=== PATIENT | male | born 1960 | race Hispanic/Latino ===

== ENCOUNTER 2018-01-19 11:28 | Emergency (ER) | payer MEDICARE ==
[2018-01-19 11:28] VITALS: BMI 33.2
[2018-01-19 11:41] VITALS: TEMP 97.8
[2018-01-19] MEDS ORDERED: Sodium Chloride 0.9% 500 ML IV STA (12:13)
[2018-01-19] MEDS ORDERED: Morphine 4 mg/ml ISec IVP STA (12:13)
[2018-01-19 12:16] VITALS: RESP 18; O2SAT 98
[2018-01-19] MEDS ORDERED: Iohexol 240 (50 ml) ONE (12:20)
[2018-01-19 12:52] LABS: BASO # 0.04 K/mm3 (0.0-2.0); BASO % 0.3 % (0.0-3.0); EOS # 0.5 (0.0-0.7); EOS % 4.1 % (1.5-5.0); GRAN # 5.2 (1.4-6.5); GRAN % 43.8 % (50.0-68.0); LYMPH # 5.2 (1.2-3.4); LYMPH % 43.7 % (22.0-35.0); MEAN CELL VOLUME 93.1 fl (80.0-105.0); MEAN CORPUSCULAR HEMOGLOBIN 31.3 pg (25.0-35.0); MEAN CORPUSCULAR HGB CONC 33.6 g/dl (31.0-37.0); MONO % 8.1 % (1.0-6.0); RBC 4.8 10^6/uL (3.5-6.1); RED CELL DISTRIBUTION WIDTH 14.3 % (11.5-14.5); WHITE BLOOD COUNT 11.9 10^3/ul (4.5-11.0)
[2018-01-19 13:03] LABS: ALB/GLOB RATIO 1.1 (1.1-1.8); ALBUMIN 4.7 g/dL (3.0-4.8); ALT/SGPT 47 U/L (7-56); AMYLASE 65 U/L (35-125); AST/SGOT 42 U/L (17-59); BLOOD UREA NITROGEN 14 mg/dL (7-21); CALCIUM 10.2 mg/dL (8.4-10.5); GFR AFRICAN-AMERICAN > 60; GFR NON-AFRICAN AMERICAN > 60; LIPASE 107 U/L (23-300)
--- NOTE | 2018-01-19 13:03 | ED PDOC ---
Arrival/HPI - General Chief Complaint: Abdominal Pain Time Seen by Provider: 01/19/18 11:50 Historian: Patient - History of Present Illness Narrative History of Present Illness (Text): 01/19/18 12:09 A 57 year old male, whose past medical history includes COPD (heavy smoker), hypertension, NIDDM, presents to the emergency department complaining of progressive severe RUQ abdominal pain for 2-3 weeks. Patient reports pain is recurrent, with severity of 10/10. Patient denies any nausea, vomiting, urinary symptoms, or any other complaints at this time. PMD: Dr. Jcarlos Izaguirre Time/Duration: Other (2-3 weeks) Symptom Onset: Sudden Symptom Course: Unchanged, Worsening Quality: Aching, Pressure Severity Level: Moderate Activities at Onset: Rest Context: Home Past Medical History - Provider Review Nursing Documentation Reviewed: Yes - Travel History Have you recently traveled outside [place] w/in the past 3 mons?: No - Cardiac Hx Cardiac Disorders: Yes Hx Hypertension: Yes - Pulmonary Hx Respiratory Disorders: Yes Hx Chronic Obstructive Pulmonary Disease (COPD): Yes Other/Comment: SMOKER - Neurological Hx Neurological Disorder: No - HEENT Hx HEENT Disorder: Yes Hx Macular Degeneration: Yes Other/Comment: WEARS GLASSES - Renal Hx Renal Disorder: No - Endocrine/Metabolic Hx Endocrine Disorders: Yes Hx Diabetes Mellitus Type 2: Yes - Hematological/Oncological Hx Blood Disorders: No - Integumentary Hx Dermatological Disorder: Yes Hx Cellulitis: Yes - Musculoskeletal/Rheumatological Hx Musculoskeletal Disorders: No Hx Falls: No - Gastrointestinal Hx Gastrointestinal Disorders: No - Genitourinary/Gynecological Hx Genitourinary Disorders: No - Psychiatric Hx Psychophysiologic Disorder: Yes Hx Anxiety: Yes Hx Depression: Yes Hx Substance Use: No - Surgical History Other/Comment: DEBRIDEMENT OF BACK WOUND - Anesthesia Hx Anesthesia: Yes Hx Anesthesia Reactions: No Hx Malignant Hyperthermia: No - Suicidal Assessment Feels Threatened In Home Enviroment: No Family/Social History - Physician Review Nursing Documentation Reviewed: Yes Family/Social History: No Known Family HX Smoking Status: Heavy Smoker > 10 Cigarettes Daily Hx Alcohol Use: No Hx Substance Use: No Allergies/Home Meds Allergies/Adverse Reactions: Allergies No Known Allergies Allergy (Verified 01/19/18 11:35) Home Medications: Home Meds Medication Instructions Recorded Confirmed GlipiZIDE [Glucotrol] 10 mg PO BID 05/22/15 01/19/18 Olmesartan/Hydrochlorothiazide 1 tab PO DAILY 05/29/15 01/19/18 [Benicar Hct 12.5 mg-40 mg] metFORMIN [glucOPHAGE] 500 mg PO BID 08/06/16 01/19/18 Review of Systems - Physician Review All systems were reviewed & negative as marked: Yes - Review of Systems Constitutional: Normal Eyes: Normal ENT: Normal Respiratory: Normal Cardiovascular: Normal Gastrointestinal: Abdominal Pain (RUQ). absent: Nausea, Vomiting Genitourinary Male: absent: Dysuria, Frequency, Hematuria, Urinary Output Changes Musculoskeletal: Back Pain Skin: Normal Neurological: Normal Endocrine: Normal Hemo/Lymphatic: Normal Psychiatric: Normal Physical Exam Vital Signs Reviewed: Yes Vital Signs Temp Pulse Resp BP Pulse Ox 01/19/18 15:15 74 18 112/69 98 01/19/18 13:48 79 18 115/75 98 01/19/18 12:15 86 18 113/71 98 01/19/18 11:37 97.8 F 94 H 17 111/73 96 Temperature: Afebrile Blood Pressure: Normal Pulse: Regular Respiratory Rate: Normal Appearance: Positive for: Well-Appearing Pain Distress: Severe Mental Status: Positive for: Alert and Oriented X 3 - Systems Exam Head: Present: Atraumatic, Normocephalic Pupils: Present: PERRL Extroacular Muscles: Present: EOMI Conjunctiva: Present: Normal Mouth: Present: Moist Mucous Membranes Neck: Present: Normal Range of Motion Respiratory/Chest: Present: Clear to Auscultation, Good Air Exchange. No: Respiratory Distress, Accessory Muscle Use Cardiovascular: Present: Regular Rate and Rhythm, Normal S1, S2. No: Murmurs Abdomen: Present: Tenderness, Distention, Normal Bowel Sounds, Other (positive Mcleod's). No: Rebound, Guarding, McBurney's Point Tender, Rovsing's Sign Present, Hernias, Feeding Tubes, Ostomy Tubes, Mass/Organomegaly Back: Present: Other (right lower back pain that refers to right side groin) Upper Extremity: Present: Normal Inspection. No: Cyanosis, Edema Lower Extremity: Present: Normal Inspection. No: Edema Neurological: Present: GCS=15, CN II-XII Intact, Speech Normal Skin: Present: Warm, Dry, Normal Color. No: Rashes Psychiatric: Present: Alert, Oriented x 3, Normal Insight, Normal Concentration Medical Decision Making ED Course and Treatment: 01/19/18 12:13 Impression: 57 year old male with progressive severe RUQ abdominal pain. Physical exam shows positive Mcle[facility]'s of abdomen; right lower back pain refers to right side groin; rest of examination is benign. Differential Diagnosis included but are not limited to: Cholelithiasis vs. Renal Stones. Plan: -- Abd/Pelvis CT -- Abdominal Ultrasound -- Chest X-ray -- Labs -- Urinalysis -- Pepcid -- Morphine -- Zofran -- IV Fluids -- Reassess and disposition Progress Notes: CT unremarkable labs WNL; no indication of renal stone of cholelithiasis; 01/19/18 15:49 Abdominal Complete US revealed bilateral renal cysts only and was corroborated with the CT Discussed with patient and family who interprets ([place]ic); advised to f/u with PMD; advised to see Dr. El for pain management VSS stable on dc and ambulated well out of the ED - Lab Interpretations Lab Results: 01/19/18 12:30 01/19/18 12:30 Lab Results 01/19/18 14:10: Urine Color Yellow, Urine Appearance Clear, Urine pH 6.0, Ur Specific [place] 1.025, Urine Protein Negative, Urine Glucose (UA) Negative, Urine Ketones Negative, Urine Blood Negative, Urine Nitrate Negative, Urine Bilirubin Negative, Urine Urobilinogen 0.2, Ur Leukocyte Esterase Negative 01/19/18 12:30: Sodium 144, Potassium 3.5 L, Chloride 102, Carbon Dioxide 27, Anion Gap 18, BUN 14, Creatinine 0.8, Est GFR ( Amer) > 60, Est GFR (Non- Af Amer) > 60, Random Glucose 94, Calcium 10.2, Total Bilirubin 0.5, AST 42, ALT 47, Alkaline Phosphatase 87, Total Protein 9.1 H, Albumin 4.7, Globulin 4.4 , Albumin/Globulin Ratio 1.1, Amylase 65, Lipase 107 01/19/18 12:30: PT 12.2, INR 1.06, APTT 29.8 01/19/18 12:30: WBC 11.9 H, RBC 4.80, Hgb 15.0, Hct 44.7, MCV 93.1, MCH 31.3, MCHC 33.6, RDW 14.3, Plt Count 243, MPV 11.0, Gran % 43.8 L, Lymph % (Auto) 43.7 H, Mckean % (Auto) 8.1 H, Eos % (Auto) 4.1, Baso % (Auto) 0.3, Gran # 5.20, Lymph # (Auto) 5.2 H, Mckean # (Auto) 1.0 H, Eos # (Auto) 0.5, Baso # (Auto) 0.04 I have reviewed the lab results: Yes - RAD Interpretation Narrative RAD Interpretations (Text): 01/19/18 15:45 PROCEDURE: CT Abdomen and Pelvis with contrast HISTORY: RUQ pain COMPARISON: 08/16/2014 TECHNIQUE: Contrast dose: 150 cc of Omni 350 Radiation dose: Total exam DLP = 1323 mGy-cm. This CT exam was performed using one or more of the following dose reduction techniques: Automated exposure control, adjustment of the mA and/or kV according to patient size, and/or use of iterative reconstruction technique. FINDINGS: LOWER THORAX: Unremarkable. LIVER: Unremarkable. No gross lesion or ductal dilatation. There is fatty infiltration of the liver GALLBLADDER AND BILE DUCTS: Unremarkable. PANCREAS: Unremarkable. No gross lesion or ductal dilatation. SPLEEN: Unremarkable. ADRENALS: Unremarkable. No mass. KIDNEYS AND URETERS: Unremarkable. No hydronephrosis. No solid mass. VASCULATURE: Unremarkable. No aortic aneurysm. BOWEL: Unremarkable. No obstruction. No gross mural thickening. APPENDIX: Normal appendix. PERITONEUM: Unremarkable. No free fluid. No free air. LYMPH NODES: Unremarkable. No enlarged lymph nodes. BLADDER: Unremarkable. REPRODUCTIVE: Unremarkable. BONES: No acute fracture. OTHER FINDINGS: None. IMPRESSION: No acute intra-abdominal findings. 01/19/18 15:59 CXR: CARDIOVASCULAR: Mild cardiomegaly 01/19/18 16:26 Abd US HISTORY: RUQ pain COMPARISON: None. TECHNIQUE: Sonographic evaluation of the abdomen. FINDINGS: LIVER: Measures 24 cm enlarged. Diffuse increased echogenicity compatible with fatty infiltration. Apparent fatty sparing adjacent to the gallbladder. No intrahepatic bile duct dilatation. GALLBLADDER: Unremarkable. No gallstones. COMMON BILE DUCT: Measures 5.3 mm. No dilated ducts. PANCREAS: Unremarkable as visualized. No mass. No ductal dilatation. RIGHT KIDNEY: Measures 12.5 x 5.2 x 5.8cm. In the midpole of the right kidney there is intermediate area of echotexture masslike measuring 3.6 x 2.8 x 3.6 cm. This mass like echotexture extends into the right renal central echogenic fat. A unusually masslike prominent column of Fletcher -a developmental variant is 1 consideration. However the diagnosis of exclusion is a nearly isoechoic right renal mass here. . If CT is unrevealing, then MR of the kidneys is recommended without with contrast enhancement. Triple phase CT imaging is another consideration. No calculus, or hydronephrosis. LEFT KIDNEY: Measures 11.6 x 5.6 x 5.4 cmcm. No calculus,or hydronephrosis. A similar intermediate area of fat echotexture masslike measuring 4.5 x 3.9 x 4.8 cm extending into the midpole of the left renal sinus echogenic fat is noted. An unusually masslike prominent hilum of burden-a developmental variant is also in this left kidney a consideration. -but as mentioned in the right kidney findings the diagnosis of exclusion is a nearly isoechoic left renal mass here. If CT is unrevealing, then MR of the kidneys is recommended without with contrast enhancement. Triple phase CT imaging is another consideration. An incidental left upper renal pole intra cortical cyst ox megaly 2 cm in size is also noted. SPLEEN: Normal in size and contour. No mass. AORTA: No aneurysmal dilatation. IVC: Unremarkable. OTHER FINDINGS: None. IMPRESSION: Hepatomegaly. Hepatic steatosis. No gallbladder or pancreatic pathology noted Left upper renal pole cortical cyst -2 cm In each renal mid pole the masslike echotexture here is indeterminate in its clinical significance. Prominent developmental variants are 1 consideration. As mentioned above diagnosis of exclusion is solid renal masses. Please note the above recommendations regarding additional CT and beyond that already performed versus additional MRI imaging Radiology Orders: 01/19/18 12:13 ABD PELVIS PO & IV CONTRAST [CT] Stat CHEST PORTABLE [RAD] Stat ABDOMEN COMPLETE [US] Stat - Medication Orders Current Medication Orders: Discontinued Medications Famotidine (Pepcid) 20 mg IVP STAT STA Stop: 01/19/18 12:14 Last Admin: 01/19/18 13:13 Dose: 20 mg IVP Administration Document 01/19/18 13:13 GMD (Rec: 01/19/18 13:13 GMD [id number]) Charges for Administration # of IVP Administrations 1 Sodium Chloride (Sodium Chloride 0.9%) 500 mls @ 1,000 mls/hr IV .Q30M STA Stop: 01/19/18 12:42 Last Admin: 01/19/18 13:13 Dose: 1,000 mls/hr eMAR Start Stop Document 01/19/18 13:13 GM (Rec: 01/19/18 13:13 [place] [id number]) Intravenous Solution Start Date 01/19/18 Start Time 13:13 End Date 01/19/18 End time 13:43 Total Infusion Time 30 Morphine Sulfate (Morphine) 4 mg IVP STAT STA Stop: 01/19/18 12:14 Last Admin: 01/19/18 13:13 Dose: 4 mg MAR Pain Assessment Document 01/19/18 13:13 [facility] (Rec: 01/19/18 13:13 [facility] [id number]) Pain Reassessment Is this a pain reassessment? No Presence of Pain Presence of Pain Yes IVP Administration Document 01/19/18 13:13 GMD (Rec: 01/19/18 13:13 [facility] [id number]) Charges for Administration # of IVP Administrations 1 Ondansetron HCl (Zofran Inj) 4 mg IVP STAT STA Stop: 01/19/18 12:14 Last Admin: 01/19/18 13:13 Dose: 4 mg IVP Administration Document 01/19/18 13:13 [facility] (Rec: 01/19/18 13:13 [place] [id number]) Charges for Administration # of IVP Administrations 1 Potassium Chloride (K-Dur 20 Meq Er Tab) 40 meq PO STAT STA Stop: 01/19/18 13:33 - Scribe Statement The provider has reviewed the documentation as recorded by the Ale Contreras Provider Scribe Attestation: All medical record entries made by the Scribe were at my direction and personally dictated by me. I have reviewed the chart and agree that the record accurately reflects my personal performance of the history, physical exam, medical decision making, and the department course for this patient. I have also personally directed, reviewed, and agree with the discharge instructions and disposition. Disposition/Present on Arrival - Present on Arrival Any Indicators Present on Arrival: Yes History of DVT/PE: No History of Uncontrolled Diabetes: Yes Urinary Catheter: No History of Decub. Ulcer: No History Surgical Site Infection Following: None - Disposition Have Diagnosis and Disposition been Completed?: Yes Diagnosis: Low back pain at multiple sites, Chronic pain Disposition: HOME/ ROUTINE Disposition Time: 16:46 Patient Plan: Discharge Condition: STABLE Discharge Instructions (ExitCare): Low Back Pain (DC) Additional Instructions: Dear Wilman, Please follow up with your Primary Medical Doctor in the next few days to discuss today's visit. If you have a sudden change in your pain along with other alarming symptoms, return to the ER for evaluation. 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 Take care and Be Well, RONI Matt Prescriptions: traMADol [Ultram] 50 mg PO TID #15 tab Referrals: Jcarlos Izaguirre MD, PhD [Primary Care Provider] - Follow up with primary Forms: [employer] ([place])
[2018-01-19 13:07] LABS: INR 1.06 (0.93-1.08); PROTHROMBIN TIME 12.2 SECONDS (9.4-12.5)
[2018-01-19 13:08] LABS: PARTIAL THROMBOPLASTIN TIME 29.8 Seconds (25.1-36.5)
[2018-01-19] MEDS ORDERED: Potassium Chloride 20 mEq ER Tab PO STA (13:32)
[2018-01-19 14:15] LABS: URINE BILIRUBIN NEGATIVE (NEGATIVE); URINE BLOOD NEGATIVE (NEGATIVE); URINE GLUCOSE (UA) NEGATIVE (NEGATIVE); URINE LEUKOCYTE ESTERASE NEGATIVE Leu/uL (NEGATIVE); URINE PROTEIN NEGATIVE mg/dL (<30 mg/dL); URINE UROBILINOGEN 0.2 E.U./dL (<1 E.U./dL)
[2018-01-19 14:17] LABS: URINE APPEARANCE CLEAR (CLEAR); URINE COLOR YELLOW (YELLOW)
[2018-01-19 15:16] VITALS: BP 112/69; PULSE 74
--- NOTE | 2018-01-19 15:43 | CT ---
PROCEDURE: CT Abdomen and Pelvis with contrast HISTORY: RUQ pain COMPARISON: 08/16/2014 TECHNIQUE: Contrast dose: 150 cc of Omni 350 Radiation dose: Total exam DLP = 1323 mGy-cm. This CT exam was performed using one or more of the following dose reduction techniques: Automated exposure control, adjustment of the mA and/or kV according to patient size, and/or use of iterative reconstruction technique. FINDINGS: LOWER THORAX: Unremarkable. LIVER: Unremarkable. No gross lesion or ductal dilatation. There is fatty infiltration of the liver GALLBLADDER AND BILE DUCTS: Unremarkable. PANCREAS: Unremarkable. No gross lesion or ductal dilatation. SPLEEN: Unremarkable. ADRENALS: Unremarkable. No mass. KIDNEYS AND URETERS: Unremarkable. No hydronephrosis. No solid mass. VASCULATURE: Unremarkable. No aortic aneurysm. BOWEL: Unremarkable. No obstruction. No gross mural thickening. APPENDIX: Normal appendix. PERITONEUM: Unremarkable. No free fluid. No free air. LYMPH NODES: Unremarkable. No enlarged lymph nodes. BLADDER: Unremarkable. REPRODUCTIVE: Unremarkable. BONES: No acute fracture. OTHER FINDINGS: None. IMPRESSION: No acute intra-abdominal findings.
--- NOTE | 2018-01-19 15:54 | RAD ---
HISTORY: RUQ pain COMPARISON: 08/16/2014 FINDINGS: LUNGS: No active pulmonary disease. PLEURA: No significant pleural effusion identified, no pneumothorax apparent. CARDIOVASCULAR: Mild cardiomegaly OSSEOUS STRUCTURES: No significant abnormalities. VISUALIZED UPPER ABDOMEN: Normal. OTHER FINDINGS: None. IMPRESSION: No active disease.
--- NOTE | 2018-01-19 16:25 | US ---
HISTORY: RUQ pain COMPARISON: None. TECHNIQUE: Sonographic evaluation of the abdomen. FINDINGS: LIVER: Measures 24 cm enlarged. Diffuse increased echogenicity compatible with fatty infiltration. Apparent fatty sparing adjacent to the gallbladder. No intrahepatic bile duct dilatation. GALLBLADDER: Unremarkable. No gallstones. COMMON BILE DUCT: Measures 5.3 mm. No dilated ducts. PANCREAS: Unremarkable as visualized. No mass. No ductal dilatation. RIGHT KIDNEY: Measures 12.5 x 5.2 x 5.8cm. In the midpole of the right kidney there is intermediate area of echotexture masslike measuring 3.6 x 2.8 x 3.6 cm. This mass like echotexture extends into the right renal central echogenic fat. A unusually masslike prominent column of Fletcher -a developmental variant is 1 consideration. However the diagnosis of exclusion is a nearly isoechoic right renal mass here. . If CT is unrevealing, then MR of the kidneys is recommended without with contrast enhancement. Triple phase CT imaging is another consideration. No calculus, or hydronephrosis. LEFT KIDNEY: Measures 11.6 x 5.6 x 5.4 cmcm. No calculus,or hydronephrosis. A similar intermediate area of fat echotexture masslike measuring 4.5 x 3.9 x 4.8 cm extending into the midpole of the left renal sinus echogenic fat is noted. An unusually masslike prominent hilum of burden-a developmental variant is also in this left kidney a consideration. -but as mentioned in the right kidney findings the diagnosis of exclusion is a nearly isoechoic left renal mass here. If CT is unrevealing, then MR of the kidneys is recommended without with contrast enhancement. Triple phase CT imaging is another consideration. An incidental left upper renal pole intra cortical cyst ox megaly 2 cm in size is also noted. SPLEEN: Normal in size and contour. No mass. AORTA: No aneurysmal dilatation. IVC: Unremarkable. OTHER FINDINGS: None. IMPRESSION: Hepatomegaly. Hepatic steatosis. No gallbladder or pancreatic pathology noted Left upper renal pole cortical cyst -2 cm In each renal mid pole the masslike echotexture here is indeterminate in its clinical significance. Prominent developmental variants are 1 consideration. As mentioned above diagnosis of exclusion is solid renal masses. Please note the above recommendations regarding additional CT and beyond that already performed versus additional MRI imaging
== END 2018-01-19 17:18 | disposition home or self-care (01) ==
LOC: ED 11:28
DX: M54.5 Low back pain (principal); G89.29 Other chronic pain; I10 Essential (primary) hypertension; E11.9 Type 2 diabetes mellitus without complications; F17.210 Nicotine dependence, cigarettes, uncomplicated
CPT/HCPCS: 71045; 74177; 76700; 80053; 81003; 82150; 83690; 85025; 85610; 85730; 96374; 96375; 99285; J2270; J2405; J7040; Q9966; Q9967